=== PATIENT | male | born 1985 | race Caucasian/White ===

== ENCOUNTER 2020-06-07 13:18 | Emergency (ER) | payer OTHER ==
[2020-06-07 13:46] VITALS: BP 130/85; PULSE 99; TEMP 98.1; BMI 27.3
== END 2020-06-07 14:56 | disposition home or self-care (01) ==
LOC: JERFT 13:18
DX: H92.02 Otalgia, left ear (principal); B02.9 Zoster without complications
CPT/HCPCS: 99282-25

== ENCOUNTER 2021-01-04 21:33 | Emergency (ER) | payer OTHER ==
[2021-01-04 21:40] VITALS: BP 125/80; PULSE 87; TEMP 98.1; BMI 26.6
[2021-01-04] MEDS ORDERED: DIPHTH,PERTUSS(ACELL),TET 0.5 ML DISP.SYRIN IM ONE ×2 (22:41→22:51)
== END 2021-01-04 23:29 | disposition home or self-care (01) ==
LOC: JER 21:33
PROC: 3E0234Z Introduction of Serum, Toxoid and Vaccine into Muscle, Percutaneous Approach (ICD-10-PCS; principal; 2021-01-04)
DX: S61.215A Laceration without foreign body of left ring finger without damage to nail, initial encounter (principal); S61.217A Laceration without foreign body of left little finger without damage to nail, initial encounter; W26.8XXA Contact with other sharp object(s), not elsewhere classified, initial encounter
CPT/HCPCS: 90471; 90715; 99284-25